=== PATIENT | female | born 1970 | race Caucasian/White ===

== ENCOUNTER 2022-08-08 03:20 | Emergency (ER) | payer OTHER ==
[2022-08-08 03:30] VITALS: TEMP 98.4
[2022-08-08] MEDS ORDERED: DILTIAZEM DRIP BOLUS FROM BAG 1 MG SOLN IV ONE (03:47)
[2022-08-08] MEDS ORDERED: DILTIAZEM 125 MG in SODIUM CHLORIDE 0.9% 100 ML IV SCH (04:00)
--- NOTE | 2022-08-08 04:08 | XR ---
EXAMINATION TYPE: XR chest 1V portable DATE OF EXAM: 08/08/2022 COMPARISON: NONE HISTORY: Dysrhythmia TECHNIQUE: Multiple view FINDINGS: Heart is normal. Lungs are clear of infiltrate. No heart failure. There are no hilar masses . There are chest leads. Bony thorax is intact. IMPRESSION: No active cardiopulmonary disease. Normal heart.
[2022-08-08 04:10] LABS: Basophils % (A) 0 %; Eosinophils # (A) 0.4 k/uL (0-0.7); Eosinophils % (A) 6 %; HCT 45.6 % (34.0-46.0); HGB 15.6 gm/dL (11.4-16.0); Lymphocytes # (A) 1.9 k/uL (1.0-4.8); Lymphocytes % (A) 26 %; MCH 34.4 pg (25.0-35.0); MCHC 34.2 g/dL (31.0-37.0); MCV 100.7 fL (80.0-100.0); Mean Platelet Volume 7.5; Monocytes # (A) 0.5 k/uL (0-1.0); Monocytes % (A) 6 %; Neutrophils # (A) 4.5 k/uL (1.3-7.7); Neutrophils % (A) 60 %; Platelet Count 233 k/uL (150-450); RBC 4.53 m/uL (3.80-5.40); RDW 12.1 % (11.5-15.5); WBC 7.4 k/uL (3.8-10.6)
[2022-08-08 04:27] LABS: ALT 21 U/L (4-34); AST 27 U/L (14-36); African American GFR (CKD) >90 (>60 ml/min/1.73 sqM); Albumin 4.8 g/dL (3.5-5.0); Alkaline Phosphatase 72 U/L (38-126); Anion Gap 10 mmol/L; Blood Urea Nitrogen 13 mg/dL (7-17); Calcium 9.4 mg/dL (8.4-10.2); Carbon Dioxide 27 mmol/L (22-30); Chloride 104 mmol/L (98-107); Glucose 103 mg/dL (74-99); Magnesium 2.1 mg/dL (1.6-2.3); Non-African American GFR(CKD) >90 (>60 ml/min/1.73 sqM); Potassium 3.9 mmol/L (3.5-5.1); Sodium 141 mmol/L (137-145); Total Bilirubin 0.4 mg/dL (0.2-1.3); Total Protein 7.5 g/dL (6.3-8.2)
[2022-08-08 04:28] LABS: INR 0.9 (<1.2); Partial Thromboplastin Time 25.3 sec (22.0-30.0); Prothrombin Time 9.9 sec (9.0-12.0)
--- NOTE | 2022-08-08 04:28 | ED ---
Arrhythmia/Palpitations HPI - General Chief Complaint: Arrhythmia/Palpitations Stated Complaint: Palpitations Time Seen by Provider: 08/08/22 03:48 Source: patient Mode of arrival: ambulatory - History of Present Illness MD Complaint: rapid heart beat, palpitations Onset/Timin -: hour(s) Context: occurred during rest, awoke with symptoms Associated Symptoms: shortness of breath - Related Data Allergies Allergy/AdvReac Type Severity Reaction Status Date / Time No Known Allergies Allergy Verified 08/08/22 03:30 Review of Systems ROS Statement: Those systems with pertinent positive or pertinent negative responses have been documented in the HPI. ROS Other: All systems not noted in ROS Statement are negative. Constitutional: Denies: fever, chills Respiratory: Reports: dyspnea. Denies: cough Cardiovascular: Reports: palpitations. Denies: chest pain Gastrointestinal: Denies: abdominal pain, nausea, vomiting, diarrhea, constipation Genitourinary: Denies: dysuria, frequency, hematuria Skin: Denies: rash Neurological: Denies: headache, weakness, numbness Past Medical History Past Medical History: No Reported History History of Any Multi-Drug Resistant Organisms: None Reported Past Surgical History: Hysterectomy Past Psychological History: No Psychological Hx Reported Smoking Status: Never smoker Past Alcohol Use History: None Reported Past Drug Use History: None Reported General Exam General appearance: alert, in no apparent distress Head exam: Present: atraumatic, normocephalic Eye exam: Present: normal appearance. Absent: scleral icterus, conjunctival injection ENT exam: Present: normal oropharynx Neck exam: Present: normal inspection. Absent: full ROM Respiratory exam: Present: normal lung sounds bilaterally. Absent: respiratory distress, wheezes, rales, rhonchi, stridor Cardiovascular Exam: Present: regular rate, normal rhythm, normal heart sounds. Absent: systolic murmur, diastolic murmur, rubs, gallop GI/Abdominal exam: Present: soft. Absent: distended, tenderness, guarding, rebound, rigid, mass Extremities exam: Present: normal inspection, normal capillary refill. Absent: pedal edema, calf tenderness Back exam: Present: normal inspection. Absent: CVA tenderness (R), CVA tenderness (L) Neurological exam: Present: alert Skin exam: Present: warm, dry, intact, normal color. Absent: rash Course Vital Signs 08/08/22 08/08/22 08/08/22 03:26 04:02 05:16 Temperature 98.4 F Pulse Rate 98 95 86 Respiratory 18 20 16 Rate Blood Pressure 139/89 140/89 120/88 O2 Sat by Pulse 100 98 99 Oximetry EKG Findings - EKG Results: EKG: interpreted by ERMD, normal axis EKG shows: atrial fibrillation (Rate 161 bpm) - Blocks, [place], Hypertrophy, ST Abn: AV and intraventricular conduction: right bundle branch block (fixed/intermittent, complete/incomplete) (Possible right ventricular conduction delay) Medical Decision Making - Lab Data Result diagrams: 08/08/22 03:52 08/08/22 03:52 Lab Results 08/08/22 08/08/22 08/08/22 Range/Units 03:52 03:52 03:52 WBC 7.4 (3.8-10.6) k/uL RBC 4.53 (3.80-5.40) m/uL Hgb 15.6 (11.4-16.0) gm/dL Hct 45.6 (34.0-46.0) % MCV 100.7 H (80.0-100.0) fL MCH 34.4 (25.0-35.0) pg MCHC 34.2 (31.0-37.0) g/dL RDW 12.1 (11.5-15.5) % Plt Count 233 (150-450) k/uL MPV 7.5 Neutrophils % 60 % Lymphocytes % 26 % Monocytes % 6 % Eosinophils % 6 % Basophils % 0 % Neutrophils # 4.5 (1.3-7.7) k/uL Lymphocytes # 1.9 (1.0-4.8) k/uL Monocytes # 0.5 (0-1.0) k/uL Eosinophils # 0.4 (0-0.7) k/uL Basophils # 0.0 (0-0.2) k/uL PT 9.9 (9.0-12.0) sec INR 0.9 (<1.2) APTT 25.3 (22.0-30.0) sec Sodium 141 (137-145) mmol/L Potassium 3.9 (3.5-5.1) mmol/L Chloride 104 (98-107) mmol/L Carbon Dioxide 27 (22-30) mmol/L Anion Gap 10 mmol/L BUN 13 (7-17) mg/dL Creatinine 0.60 (0.52-1.04) mg/dL Est GFR (CKD-EPI)AfAm >90 (>60 ml/min/1.73 sqM) Est GFR (CKD-EPI)NonAf >90 (>60 ml/min/1.73 sqM) Glucose 103 H (74-99) mg/dL Calcium 9.4 (8.4-10.2) mg/dL Magnesium 2.1 (1.6-2.3) mg/dL Total Bilirubin 0.4 (0.2-1.3) mg/dL AST 27 (14-36) U/L ALT 21 (4-34) U/L Alkaline Phosphatase 72 (38-126) U/L Troponin I (0.000-0.034) ng/mL Total Protein 7.5 (6.3-8.2) g/dL Albumin 4.8 (3.5-5.0) g/dL TSH 5.370 H (0.465-4.680) mIU/L Urine Color Urine Appearance (Clear) Urine pH (5.0-8.0) Ur Specific [place] (1.001-1.035) Urine Protein (Negative) Urine Glucose (UA) (Negative) Urine Ketones (Negative) Urine Blood (Negative) Urine Nitrite (Negative) Urine Bilirubin (Negative) Urine Urobilinogen (<2.0) mg/dL Ur Leukocyte Esterase (Negative) 08/08/22 08/08/22 Range/Units 03:52 03:55 WBC (3.8-10.6) k/uL RBC (3.80-5.40) m/uL Hgb (11.4-16.0) gm/dL Hct (34.0-46.0) % MCV (80.0-100.0) fL MCH (25.0-35.0) pg MCHC (31.0-37.0) g/dL RDW (11.5-15.5) % Plt Count (150-450) k/uL MPV Neutrophils % % Lymphocytes % % Monocytes % % Eosinophils % % Basophils % % Neutrophils # (1.3-7.7) k/uL Lymphocytes # (1.0-4.8) k/uL Monocytes # (0-1.0) k/uL Eosinophils # (0-0.7) k/uL Basophils # (0-0.2) k/uL PT (9.0-12.0) sec INR (<1.2) APTT (22.0-30.0) sec Sodium (137-145) mmol/L Potassium (3.5-5.1) mmol/L Chloride (98-107) mmol/L Carbon Dioxide (22-30) mmol/L Anion Gap mmol/L BUN (7-17) mg/dL Creatinine (0.52-1.04) mg/dL Est GFR (CKD-EPI)AfAm (>60 ml/min/1.73 sqM) Est GFR (CKD-EPI)NonAf (>60 ml/min/1.73 sqM) Glucose (74-99) mg/dL Calcium (8.4-10.2) mg/dL Magnesium (1.6-2.3) mg/dL Total Bilirubin (0.2-1.3) mg/dL AST (14-36) U/L ALT (4-34) U/L Alkaline Phosphatase (38-126) U/L Troponin I <0.012 (0.000-0.034) ng/mL Total Protein (6.3-8.2) g/dL Albumin (3.5-5.0) g/dL TSH (0.465-4.680) mIU/L Urine Color Colorless Urine Appearance Clear (Clear) Urine pH 7.0 (5.0-8.0) Ur Specific [place] 1.004 (1.001-1.035) Urine Protein Negative (Negative) Urine Glucose (UA) Negative (Negative) Urine Ketones Trace H (Negative) Urine Blood Negative (Negative) Urine Nitrite Negative (Negative) Urine Bilirubin Negative (Negative) Urine Urobilinogen <2.0 (<2.0) mg/dL Ur Leukocyte Esterase Negative (Negative) Disposition Clinical Impression: Atrial fibrillation Disposition: HOME SELF-CARE Condition: Good Instructions (If sedation given, give patient instructions): A-fib (Atrial Fibrillation) (ED) Is patient prescribed a controlled substance at d/c from ED?: No Referrals: Sawyer Garcia MD [Primary Care Provider] - 1-2 days
[2022-08-08 05:06] LABS: Appearance,Urine Clear (Clear); Bilirubin,Urine Negative (Negative); Blood,Urine Negative (Negative); Color,Urine Colorless; Glucose,Urine (UA) Negative (Negative); Ketones,Urine Trace (Negative); Leukocyte Esterase,Urine Negative (Negative); Nitrite,Urine Negative (Negative); Protein,Urine Negative (Negative); Specific Gravity,Urine 1.004 (1.001-1.035); Urobilinogen,Urine <2.0 mg/dL (<2.0)
[2022-08-08 05:16] VITALS: PULSE 86; RESP 16
[2022-08-08 06:55] VITALS: BP 135/66
== END 2022-08-08 06:55 | disposition home or self-care (01) ==
LOC: EC 03:20
DX: I48.91 Unspecified atrial fibrillation (principal)
CPT/HCPCS: 36415; 71045; 80053; 81003; 83735; 84443; 84484; 85025; 85610; 85730; 93005; 99285

== ENCOUNTER 2023-03-21 12:21 | Observation (INO) | payer OTHER ==
[2023-03-21] MEDS ORDERED: ADENOSINE 3 MG/ML 2 ML VIAL IVP STA (13:01)
[2023-03-21] MEDS ORDERED: SODIUM CHLORIDE 0.9% 500 ML 500 ML IV STA (13:07)
--- NOTE | 2023-03-21 13:12 | ED ---
General Adult HPI - General Chief complaint: Arrhythmia/Palpitations Stated complaint: tachycardia Time Seen by Provider: 03/21/23 12:35 Source: patient, family, RN notes reviewed, old records reviewed Mode of arrival: ambulatory Limitations: no limitations - History of Present Illness Initial comments: This is a 52-year-old female presents emergency Department stating she had recent ablation for atrial fibrillation. Patient states she has had no symptoms since also today she felt her heart racing. Patient states she took her heart rate was under 90 she came to the emergency department. Patient states her legs feel little weaker when this occurs but she's not expressing any chest pain difficulty breathing or shortness of breath per patient denies lightheadedness or dizziness. Patient denies any recent fever chills or cough. Patient states she did drink a little heavier this week and because it was a . - Related Data Home Medications Medication Instructions Recorded Confirmed No Known Home Medications 03/21/23 03/21/23 Allergies Allergy/AdvReac Type Severity Reaction Status Date / Time No Known Allergies Allergy Verified 03/21/23 13:17 Review of Systems ROS Statement: Those systems with pertinent positive or pertinent negative responses have been documented in the HPI. ROS Other: All systems not noted in ROS Statement are negative. Past Medical History Past Medical History: Atrial Fibrillation, Asthma History of Any Multi-Drug Resistant Organisms: None Reported Past Surgical History: No Surgical Hx Reported, Cardiac Ablation, Hysterectomy Past Psychological History: No Psychological Hx Reported Smoking Status: Never smoker Past Alcohol Use History: Occasional Past Drug Use History: None Reported General Exam - General Exam Comments Initial Comments: GENERAL: Patient is well-developed and well-nourished. Patient is nontoxic and well- hydrated and is in mild distress. ENT: Neck is soft and supple. No significant lymphadenopathy is noted. Oropharynx is clear. Moist mucous membranes. Neck has full range of motion without eliciting any pain. EYES: The sclera were anicteric and conjunctiva were pink and moist. Extraocular movements were intact and pupils were equal round and reactive to light. Eyelids were unremarkable. PULMONARY: Unlabored respirations. Good breath sounds bilaterally. No audible rales rhonchi or wheezing was noted. CARDIOVASCULAR: Patient's heart rate is 190 beats a minute ABDOMEN: Soft and nontender with normal bowel sounds. SKIN: Skin is clear with no lesions or rashes and otherwise unremarkable. NEUROLOGIC: Patient is alert and oriented x3. Cranial nerves II through XII are grossly intact. Motor and sensory are also intact. Normal speech, volume and content. Symmetrical smile. MUSCULOSKELETAL: Normal extremities with adequate strength and full range of motion. LYMPHATICS: No significant lymphadenopathy is noted PSYCHIATRIC: Normal psychiatric evaluation. Limitations: no limitations Course Vital Signs 03/21/23 03/21/23 03/21/23 12:35 12:49 14:05 Temperature 97.9 F Pulse Rate 198 H 197 H 100 Respiratory 18 18 18 Rate Blood Pressure 125/90 126/103 119/86 O2 Sat by Pulse 100 99 100 Oximetry Medical Decision Making - Medical Decision Making EKG is interpreted by myself shows supraventricular tachycardia at 194 bpm QRS 71 Q-T intervals 193 QTC is 291. Patient's EKG shows no ST segment elevation there is slight depression in precordial leads I interpreted the repeat EKG which was after adenosine it showed a sinus tachycardia at 109 bpm OR interval 248 uracil 74 QT interval 336 QTC is 400. Patient's EKG is no ST segment elevation or depression. Was pt. sent in by a medical professional or institution (, PA, LEARNING OFFICER, urgent care, hospital, or penitentiary...) When possible be specific @ -[No] Did you speak to anyone other than the patient for history (EMS, parent, family, police, friend...)? What history was obtained from this source @ -[No] Did you review nursing and triage notes (agree or disagree)? Why? @ -[I reviewed and agree with nursing and triage notes] Were old charts reviewed (outside hosp., previous admission, EMS record, old EKG, old radiological studies, urgent care reports/EKG's, penitentiary records)? Report findings @ -[No old charts were reviewed] Differential Diagnosis (chest pain, altered mental status, abdominal pain women, abdominal pain men, vaginal bleeding, weakness, fever, dyspnea, syncope, headache, dizziness, GI bleed, back pain, seizure, CVA, palpatations, mental health, musculoskeletal)? @ -Differential Palpitations Ventricular arrhythmias, atrial arrhythmias, myocardial infarction, anemia, thyrotoxicosis, electrolyte imbalance, hypokalemia, pulmonary embolism, pulmonary disease, drugs, alcohol, anxiety, stress.... This is not meant to be an all-inclusive list. EKG interpreted by me (3pts min.). @ -[As above] X-rays interpreted by me (1pt min.). @ -Chest x-ray showed no acute abnormality. CT interpreted by me (1pt min.). @ -[None done] U/S interpreted by me (1pt. min.). @ -[None done] What testing was considered but not performed or refused? (CT, X-rays, U/S, labs)? Why? @ -[None] What meds were considered but not given or refused? Why? @ -[None] Did you discuss the management of the patient with other professionals (professionals i.e. DrSe, PA, LEARNING OFFICER, lab, RT, psych nurse, social worker psychiatric, rail car repairman, teacher, biosecurity officer, case supervisor)? Give summary @ -[No] Was smoking cessation discussed for >3mins.? @ -[No] Was critical care preformed (if so, how long)? @ -[No] Were there social determinants of health that impacted care today? How? (Homelessness, low income, unemployed, alcoholism, drug addiction, transportation, low edu. Level, literacy, decrease access to med. care, [facility], rehab)? @ -[No] Was there de-escalation of care discussed even if they declined (Discuss DNR or withdrawal of care, Hospice)? DNR status @ -[No] What co-morbidities impacted this encounter? (DM, HTN, Smoking, COPD, CAD, Cancer, CVA, ARF, Chemo, Hep., AIDS, mental health diagnosis, sleep apnea, morbid obesity)? @ -[None] Was patient admitted / discharged? Hospital course, mention meds given and route, prescriptions, significant lab abnormalities, going to OR and other pertinent info. @ -Patient was given adenosine 6 mg of the SVT converted almost immediately. Patient remained with a heart rate under 100 throughout her ED stay. Patient's troponin was mildly bumped at 0.116 patient was willing to stay for a few more hours to get a second troponin and determine what to do from there. Dr. Fuller will be following up with his patient at 3 PM - Lab Data Result diagrams: 03/21/23 13:00 03/21/23 13:00 Lab Results 03/21/23 03/21/23 03/21/23 Range/Units 13:00 13:00 13:00 WBC 8.0 (3.8-10.6) k/uL RBC 4.69 (3.80-5.40) m/uL Hgb 15.3 (11.4-16.0) gm/dL Hct 46.3 H (34.0-46.0) % MCV 98.7 (80.0-100.0) fL MCH 32.7 (25.0-35.0) pg MCHC 33.1 (31.0-37.0) g/dL RDW 12.8 (11.5-15.5) % Plt Count 277 (150-450) k/uL MPV 7.2 Neutrophils % 72 % Lymphocytes % 19 % Monocytes % 6 % Eosinophils % 1 % Basophils % 0 % Neutrophils # 5.7 (1.3-7.7) k/uL Lymphocytes # 1.5 (1.0-4.8) k/uL Monocytes # 0.5 (0-1.0) k/uL Eosinophils # 0.1 (0-0.7) k/uL Basophils # 0.0 (0-0.2) k/uL PT 10.9 (9.0-12.0) sec INR 1.0 (<1.2) APTT 29.4 (22.0-30.0) sec Sodium 140 (137-145) mmol/L Potassium 4.3 (3.5-5.1) mmol/L Chloride 103 (98-107) mmol/L Carbon Dioxide 28 (22-30) mmol/L Anion Gap 9 mmol/L BUN 10 (7-17) mg/dL Creatinine 0.67 (0.52-1.04) mg/dL Est GFR (CKD-EPI)AfAm >90 (>60 ml/min/1.73 sqM) Est GFR (CKD-EPI)NonAf >90 (>60 ml/min/1.73 sqM) Glucose 105 H (74-99) mg/dL Calcium 9.6 (8.4-10.2) mg/dL Magnesium 2.0 (1.6-2.3) mg/dL Total Bilirubin 0.5 (0.2-1.3) mg/dL AST 31 (14-36) U/L ALT 24 (4-34) U/L Alkaline Phosphatase 85 (38-126) U/L Troponin I (0.000-0.034) ng/mL Total Protein 7.9 (6.3-8.2) g/dL Albumin 4.9 (3.5-5.0) g/dL TSH 2.060 (0.465-4.680) mIU/L 03/21/23 Range/Units 13:00 WBC (3.8-10.6) k/uL RBC (3.80-5.40) m/uL Hgb (11.4-16.0) gm/dL Hct (34.0-46.0) % MCV (80.0-100.0) fL MCH (25.0-35.0) pg MCHC (31.0-37.0) g/dL RDW (11.5-15.5) % Plt Count (150-450) k/uL MPV Neutrophils % % Lymphocytes % % Monocytes % % Eosinophils % % Basophils % % Neutrophils # (1.3-7.7) k/uL Lymphocytes # (1.0-4.8) k/uL Monocytes # (0-1.0) k/uL Eosinophils # (0-0.7) k/uL Basophils # (0-0.2) k/uL PT (9.0-12.0) sec INR (<1.2) APTT (22.0-30.0) sec Sodium (137-145) mmol/L Potassium (3.5-5.1) mmol/L Chloride (98-107) mmol/L Carbon Dioxide (22-30) mmol/L Anion Gap mmol/L BUN (7-17) mg/dL Creatinine (0.52-1.04) mg/dL Est GFR (CKD-EPI)AfAm (>60 ml/min/1.73 sqM) Est GFR (CKD-EPI)NonAf (>60 ml/min/1.73 sqM) Glucose (74-99) mg/dL Calcium (8.4-10.2) mg/dL Magnesium (1.6-2.3) mg/dL Total Bilirubin (0.2-1.3) mg/dL AST (14-36) U/L ALT (4-34) U/L Alkaline Phosphatase (38-126) U/L Troponin I 0.116 H* (0.000-0.034) ng/mL Total Protein (6.3-8.2) g/dL Albumin (3.5-5.0) g/dL TSH (0.465-4.680) mIU/L Disposition Referrals: Sawyer Garcia MD [Primary Care Provider] - 1-2 days
[2023-03-21 13:48] LABS: Basophils % (A) 0 %; Eosinophils # (A) 0.1 k/uL (0-0.7); Eosinophils % (A) 1 %; HCT 46.3 % (34.0-46.0); HGB 15.3 gm/dL (11.4-16.0); Lymphocytes # (A) 1.5 k/uL (1.0-4.8); Lymphocytes % (A) 19 %; MCH 32.7 pg (25.0-35.0); MCHC 33.1 g/dL (31.0-37.0); MCV 98.7 fL (80.0-100.0); Mean Platelet Volume 7.2; Monocytes # (A) 0.5 k/uL (0-1.0); Monocytes % (A) 6 %; Neutrophils # (A) 5.7 k/uL (1.3-7.7); Neutrophils % (A) 72 %; Platelet Count 277 k/uL (150-450); RBC 4.69 m/uL (3.80-5.40); RDW 12.8 % (11.5-15.5)
[2023-03-21 14:00] LABS: ALT 24 U/L (4-34); AST 31 U/L (14-36); African American GFR (CKD) >90 (>60 ml/min/1.73 sqM); Albumin 4.9 g/dL (3.5-5.0); Alkaline Phosphatase 85 U/L (38-126); Anion Gap 9 mmol/L; Blood Urea Nitrogen 10 mg/dL (7-17); Calcium 9.6 mg/dL (8.4-10.2); Carbon Dioxide 28 mmol/L (22-30); Chloride 103 mmol/L (98-107); Glucose 105 mg/dL (74-99); Non-African American GFR(CKD) >90 (>60 ml/min/1.73 sqM); Partial Thromboplastin Time 29.4 sec (22.0-30.0); Potassium 4.3 mmol/L (3.5-5.1); Prothrombin Time 10.9 sec (9.0-12.0); Sodium 140 mmol/L (137-145); Total Bilirubin 0.5 mg/dL (0.2-1.3); Total Protein 7.9 g/dL (6.3-8.2)
--- NOTE | 2023-03-21 14:27 | XR ---
EXAMINATION TYPE: XR chest 2V DATE OF EXAM: 03/21/2023 COMPARISON: 08/08/2022 HISTORY: Shortness of breath TECHNIQUE: Frontal and lateral views of the chest are obtained. FINDINGS: Scattered senescent parenchymal changes noted. Hyperinflation compatible with COPD. No evidence for infiltrate. No evidence for atelectasis. Heart size is stable. Mediastinal structures are stable and grossly unremarkable. No evidence for hilar prominence. Degenerative changes dorsal spine. IMPRESSION: 1. No evidence for acute pulmonary disease.
[2023-03-21] MEDS ORDERED: NITROGLYCERIN SL TABS 0.4 MG TAB SUBLINGUAL PRN (20:13)
[2023-03-22 00:01] VITALS: TEMP 97.8
[2023-03-22] MEDS ORDERED: VERAPAMIL 40 MG TAB PO PRN (08:31)
--- NOTE | 2023-03-22 08:42 | P.CRDCN ---
History of Present Illness Consult date: 03/22/23 History of present illness: History of Present Illness: The patient is a 52-year-old female who presented with episodes of palpitations that lasted for about 10 hours, woke her up from sleep, in the emergency room she was noted to be in SVT and subsequently converted back to sinus mechanism after receiving IV adenosine. She had mild elevation of her troponin. The pa cynthia has a known history of atrial fibrillation, status post ablation on January 30 at [facility]. The patient has no prior documented history of SVT yet she has noted her heart rate in the past prior to her ablation going up to the 200 bpm. She was at 194 on presentation. She is usually active physically has no associated chest discomfort, dyspnea or dizziness. She was feeling uncomfortable yesterday but had no discomfort in the chest. She has no history of obstructive CAD. She has no PND, orthopnea or peripheral edema. She has a history of smoking which she stopped in July 2022 when atrial fibrillation was documented the first time. She has no history of hypertension, diabetes or documented hyperlipidemia. She does not consume any significant caffeine but had more alcohol intake than usual on . She has been in sinus mechanism since her admission and her EKG shows no acute ST segment changes. Medications: None at home Review of Systems: Respiratory: No history of asthma, bronchitis or recent cough. GI: No nausea or vomiting . No history of peptic ulcer disease. No recent GI bleed. : No hematuria or dysuria. Nervous System: No stroke or seizure. Physical Examination: 52-year-old female, alert and oriented no apparent distress ,Blood pressure 127/67, Heart rate 94 Head: Normocephalic. Eyes: Sclerae nonicteric. Neck: Good carotid upstroke, no bruit, no jugular venous distention. Lungs: Clear to auscultation. Heart: Regular rate and rhythm, S1-S2, no S3, no rub. No murmur. Abdomen: Soft nontender, positive bowel sounds no organomegaly. Extremities: No edema, intact distal pulses. Labs: Troponin 0.116, 0.674, 0.506. Potassium 4.3. TSH 2.0. Hemoglobin 15.3. Chest x-ray with no acute infiltrate EKG: Initial EKG SVT, heart rate [address]-T wave changes, subsequent EKG shows sinus mechanism with mild nonspecific ST-T wave changes and RSR prime Impression: 1. 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 Prior history of atrial fibrillation, status post ablation, no recurrence, score of 1 3. Mild troponin elevation, most likely related to the tachycardia, no evidence to suggest a primary ischemic event Plan: 1. Obtain an echocardiogram 2. Obtain a stress echocardiogram 3. With no evidence of stress-induced ischemia, no further cardiac workup will be needed at this time 4. Start verapamil 40 mg on a when necessary basis. 5. Patient to follow-up with her primary human services manager for possible ablation of AVNRT 6. Depending on her progress further recommendations will be made 7. Thank you for this consult we will follow with you Past Medical History Past Medical History: Atrial Fibrillation, Asthma History of Any Multi-Drug Resistant Organisms: None Reported Past Surgical History: Cardiac Ablation, Hysterectomy Past Psychological History: No Psychological Hx Reported Smoking Status: Never smoker Past Alcohol Use History: Occasional Past Drug Use History: None Reported Medications and Allergies Home Medications Medication Instructions Recorded Confirmed Type No Known Home Medications 03/21/23 03/21/23 History Allergies Allergy/AdvReac Type Severity Reaction Status Date / Time No Known Allergies Allergy Verified 03/21/23 13:17 Physical Exam Vitals: Vital Signs Temp Pulse Pulse Resp BP BP Pulse Ox 03/22/23 04:00 94 16 127/67 97 03/21/23 23:59 97.8 F 99 18 155/92 98 03/21/23 21:02 90 16 117/66 98 03/21/23 18:10 98 16 126/91 100 03/21/23 18:00 95 18 127/67 98 03/21/23 16:00 101 H 18 97 03/21/23 14:05 100 18 119/86 100 03/21/23 12:49 197 H 18 126/103 99 03/21/23 12:35 97.9 F 198 H 18 125/90 100 Intake and Output 03/21/23 03/22/23 03/22/23 22:59 06:59 14:59 Intake Total 560 Balance 560 Intake: Oral 560 Other: Weight 51.71 kg Results 03/21/23 13:00 03/21/23 13:00 Cardiac Enzymes 03/21/23 03/21/23 03/21/23 Range/Units 13:00 13:00 18:09 AST 31 (14-36) U/L Troponin I 0.116 H* 0.674 H* (0.000-0.034) ng/mL 03/21/23 Range/Units 21:06 AST (14-36) U/L Troponin I 0.506 H* (0.000-0.034) ng/mL Coagulation 03/21/23 Range/Units 13:00 PT 10.9 (9.0-12.0) sec APTT 29.4 (22.0-30.0) sec CBC 03/21/23 Range/Units 13:00 WBC 8.0 (3.8-10.6) k/uL RBC 4.69 (3.80-5.40) m/uL Hgb 15.3 (11.4-16.0) gm/dL Hct 46.3 H (34.0-46.0) % Plt Count 277 (150-450) k/uL Comprehensive Metabolic Panel 03/21/23 Range/Units 13:00 Sodium 140 (137-145) mmol/L Potassium 4.3 (3.5-5.1) mmol/L Chloride 103 (98-107) mmol/L Carbon Dioxide 28 (22-30) mmol/L BUN 10 (7-17) mg/dL Creatinine 0.67 (0.52-1.04) mg/dL Glucose 105 H (74-99) mg/dL Calcium 9.6 (8.4-10.2) mg/dL AST 31 (14-36) U/L ALT 24 (4-34) U/L Alkaline Phosphatase 85 (38-126) U/L Total Protein 7.9 (6.3-8.2) g/dL Albumin 4.9 (3.5-5.0) g/dL Current Medications Generic Name Dose Route Start Last Admin Trade Name Freq PRN Reason Stop Dose Admin Aspirin 325 mg 03/22/23 09:00 Aspirin 325 Mg Tab PO DAILY SHAJI Sodium Chloride 1,000 mls @ 100 mls/hr 03/21/23 20:15 Saline 0.9% IV .Q10H SHAJI Nitroglycerin 0.4 mg 03/21/23 20:13 Nitroglycerin Sl Tabs 0.4 Mg Tab SUBLINGUAL Q5M PRN Chest Pain Verapamil HCl 40 mg 05/31/23 08:31 Verapamil 40 Mg Tab PO ONCE PRN Cardiac Arrhythmia Intake and Output 03/21/23 03/22/23 03/22/23 22:59 06:59 14:59 Intake Total 560 Balance 560 Intake: Oral 560 Other: Weight 51.71 kg 03/21/23 13:00 03/21/23 13:00
[2023-03-22] MEDS: SODIUM CHLORIDE 0.9% 1,000 ML IV SCH ×3 (09:21→17:55)
--- NOTE | 2023-03-22 09:30 | P.HPIM ---
History of Present Illness This is a pleasant 52 years old female with past medical history of atrial fibrillation status post cardiac ablation, asthma Patient presents because of tachycardia and increased heart rate. Patient woke up 4:00 complaining of from racing heart rate with little discomfort but no overt chest pain or dyspnea or dizziness. Patient denies any GI or urinary symptoms. She has mild headache. She denies weakness or numbness. No confusion She has a heart monitor for the last 2 weeks with her day care home provider She quit smoking last July when she had A. fib also she quit drinking alcohol and coffee. Review of Systems Review of systems CONSTITUTIONAL: No fever, no malaise, no fatigue. HEENT: No recent visual problems or hearing problems. Denied any sore throat. CARDIOVASCULAR: No orthopnea, PND, no palpitations, no syncope. PULMONARY: No shortness of breath, no cough, no hemoptysis. GASTROINTESTINAL: No diarrhea, no nausea, no vomiting, no abdominal pain. Normoactive bowel sounds. NEUROLOGICAL: No headaches, no weakness, no numbness. HEMATOLOGICAL: Denies any bleeding or petechiae. GENITOURINARY: Denies any burning micturition, frequency, or urgency. MUSCULOSKELETAL/RHEUMATOLOGICAL: Denies any joint pain, swelling, or any muscle pain. ENDOCRINE: Denies any polyuria or polydipsia. Past Medical History Past Medical History: Atrial Fibrillation, Asthma History of Any Multi-Drug Resistant Organisms: None Reported Past Surgical History: Cardiac Ablation, Hysterectomy Past Psychological History: No Psychological Hx Reported Smoking Status: Never smoker Past Alcohol Use History: Occasional Past Drug Use History: None Reported Medications and Allergies Home Medications Medication Instructions Recorded Confirmed Type No Known Home Medications 03/21/23 03/21/23 History Allergies Allergy/AdvReac Type Severity Reaction Status Date / Time No Known Allergies Allergy Verified 03/21/23 13:17 Physical Exam Vitals: Vital Signs Temp Pulse Pulse Resp BP BP Pulse Ox 03/22/23 04:00 94 16 127/67 97 03/21/23 23:59 97.8 F 99 18 155/92 98 03/21/23 21:02 90 16 117/66 98 03/21/23 18:10 98 16 126/91 100 03/21/23 18:00 95 18 127/67 98 03/21/23 16:00 101 H 18 97 03/21/23 14:05 100 18 119/86 100 03/21/23 12:49 197 H 18 126/103 99 03/21/23 12:35 97.9 F 198 H 18 125/90 100 Intake and Output 03/21/23 03/22/23 03/22/23 22:59 06:59 14:59 Intake Total 560 Balance 560 Intake: Oral 560 Other: Weight 51.71 kg GENERAL: The patient is alert and oriented x3, not in any acute distress. Well developed, well nourished. HEENT: Pupils are round and equally reacting to light. EOMI. No scleral icterus. No conjunctival pallor. Normocephalic, atraumatic. No pharyngeal erythema. No thyromegaly. CARDIOVASCULAR: S1 and S2 present. No murmurs, rubs, or gallops. PULMONARY: Chest is clear to auscultation, no wheezing or crackles. ABDOMEN: Soft, nontender, nondistended, normoactive bowel sounds. No palpable organomegaly. MUSCULOSKELETAL: No joint swelling or deformity. EXTREMITIES: No cyanosis, clubbing, or pedal edema. NEUROLOGICAL: Gross neurological examination did not reveal any focal deficits. SKIN: No rashes. no petechiae. Results CBC & Chem 7: 03/21/23 13:00 03/21/23 13:00 Labs: Abnormal Lab Results - Last 24 Hours (Table) 03/21/23 03/21/23 03/21/23 Range/Units 13:00 13:00 13:00 Hct 46.3 H (34.0-46.0) % Glucose 105 H (74-99) mg/dL Troponin I 0.116 H* (0.000-0.034) ng/mL 03/21/23 03/21/23 Range/Units 18:09 21:06 Hct (34.0-46.0) % Glucose (74-99) mg/dL Troponin I 0.674 H* 0.506 H* (0.000-0.034) ng/mL Thrombosis Risk Factor Assmnt - Choose All That Apply Any of the Below Risk Factors Present?: Yes Each Factor Represents 1 point: Age 41-60 years Other Risk Factors: No Other congenital or acquired thrombophilia - If yes, enter type in comment: No Thrombosis Risk Factor Assessment Total Risk Factor Score: 1 Thrombosis Risk Factor Assessment Level: Low Risk Assessment and Plan Assessment: On admission heart rate was 198/m, currently improved down to 92 Other vitals are stable She has unremarkable CBC, INR, BMP and liver enzymes. TSH normal 2.0. Troponin are elevated 0.11, 0.67 and 0.50. Chest x-ray: No acute process. EKG showing normal sinus rhythm at 86, no significant ST-T changes Earlier EKG showing supraventricular tachycardia at 194 Plan: Supraventricular tachycardia, currently improved Elevated troponin, most likely secondary to above Paroxysmal atrial fibrillation status post cardiac ablation on 01/30/2023 asthma, not active tissue continue with telemetry monitoring Cardiology consult Stress echo per Director Of Preclinical Research Labs and medication were reviewed.. Continue same treatment. Continue with symptomatic treatment. Resume home medication. Monitor labs and vitals. DVT and GI prophylaxis. Further recommendations as per clinical course of the patient DVT prophylaxis: Subcutaneous heparin GI Prophylaxis: Pepcid
[2023-03-22] MEDS: ASPIRIN 325 MG TAB PO SCH (09:36)
[2023-03-22 14:51] LABS: Chol/HDL Ratio 2.02 Ratio; LDL Cholesterol,Calculated 95.3 mg/dL (0.0-131.0)
--- NOTE | 2023-03-22 17:06 | CA ---
Transthoracic Echo Report Name: Shelly Escobar Age: 52 Gender: F : 1970 Exam Date: 03/22/2023 11:44 Exam Location: [facility] Ht (in): 62 Wt (lb): 114 Ordering Physician: Alexi Mayers MD ([id number]) Attending/Referring Phys: Policy Specialist Delmy Crowley RDCS Procedure CPT: Indications: svt Cardiac Hx: Technical Quality: Fair Contrast 1: Total Dose (mL): Contrast 2: Total Dose (mL): MEASUREMENTS (Male / Female) Normal Values 2D ECHO LV Diastolic Diameter PLAX 3.8 cm 4.2 - 5.9 / 3.9 - 5.3 cm LV Systolic Diameter PLAX 2.7 cm IVS Diastolic Thickness 0.8 cm 0.6 - 1.0 / 0.6 - 0.9 cm LVPW Diastolic Thickness 1.0 cm 0.6 - 1.0 / 0.6 - 0.9 cm LV Relative Wall Thickness 0.5 RV Internal Dim ED PLAX 3.6 cm LA Volume 34.6 cm??? 18 - 58 / 22 - 52 cm??? M-MODE Aortic Root Diameter MM 2.9 cm LA Systolic Diameter MM 3.4 cm LA Ao Ratio MM 1.2 AV Cusp Separation MM 2.1 cm DOPPLER AV Peak Velocity 129.9 cm/s AV Peak Gradient 6.8 mmHg AV Mean Velocity 82.8 cm/s AV Mean Gradient 3.2 mmHg AV Velocity Time Integral 23.6 cm LVOT Peak Velocity 94.5 cm/s LVOT Peak Gradient 3.6 mmHg LVOT Velocity Time Integral 16.7 cm MV E' Velocity 6.5 cm/s TR Peak Velocity 227.4 cm/s TR Peak Gradient 20.7 mmHg Right Ventricular Systolic Press 24.8 mmHg FINDINGS Left Ventricle Left ventricular cavity size normal. Left ventricular wall thickness normal. Normal left ventricular systolic function with no obvious regional wall motion abnormalities. Left ventricular ejection fraction is estimated at 55-60 %. Right Ventricle Normal right ventricular size and function. Right ventricular systolic pressure within normal limits. Right Atrium Normal right atrial size. Left Atrium Normal left atrial size. Mitral Valve Structurally normal mitral valve. No mitral stenosis, regurgitation or prolapse. Aortic Valve Trileaflet aortic valve. No aortic valve stenosis or regurgitation. Tricuspid Valve Structurally normal tricuspid valve. Mild tricuspid regurgitation. Pulmonic Valve Structurally normal pulmonic valve. Trace pulmonic regurgitation. Pericardium No pericardial effusion. Aorta Normal size aortic root and proximal ascending aorta. CONCLUSIONS Normal LV systolic function Atypical septal motion Previewed by: Dr. Sonny Petersen MD (Electronically Signed) Final Date: 22 Mar 2023 17:05
--- NOTE | 2023-03-22 17:09 | CA ---
Stress Echo Report Shelly Escobar Age: 52 Gender: F : 1970 Exam Date: 03/22/2023 11:21 Exam Location: [facility] Ht (in): 62 Wt (lb): 114 Ordering Physician: Alexi Mayers MD ([id number]) Referring Physician: MARY, News Clipping Cutter: YISEL Technologist Procedure CPT: Indication: Chest Pain ICD-9 Codes: Rhythm: Patient History: HX OF SVT, PALPITATIONS, FAMILY HX OF HEART DISEASE, PRIOR SMOKER (QUIT X 9 MOS). PRIOR CARDIAC ABLATION Cardiac Medications: Medications in past 24 hours: Contrast: Stress Results Protocol: Anshu Total dose(mL): Exercise Duration (min:sec): Max ST Depression (mm): Angina Score: Madsen Score: METS: 9.1 Resting HR: 108 Resting BP: 102 / 65 Peak HR: 173 Peak BP: 178 / 73 Max Predicted HR: 168 103 % Max Predicted HR Target HR: 143 Double Product: 16089 Stress Summary: BP Response: Reason for Termination: MAX EXERTION/TARGET HR Cardiac Symptoms: NO SYMPTOMS ECG Analysis Resting ECG: Normal sinus rhythm with nonspecific ST-T wave changes Stress ECG: Worsening of the baseline ST-T wave changes Arrhythmia: Echo Analysis Resting Echo: Normal left and clear sinus atypical septal motion with normal LV function Peak Echo Analysis: Normal hyperdynamic response of all segments of myocardium noted MEASUREMENTS (Male/Female) Normal Values CONCLUSIONS Good exercise tolerance Inconclusive EKG part of the stress test due to baseline EKG abnormalities Negative stress echo Dr. Sonny Petersen MD (Electronically Signed) Final Date: 22 Mar 2023 17:08
[2023-03-22] MEDS: FAMOTIDINE 20 MG/2 ML VIAL IV SCH (20:26)
[2023-03-22] MEDS: HEPARIN SODIUM,PORCINE/PF 5,000 UNIT/0.5 ML SYRINGE SQ SCH (20:26)
[2023-03-23 04:49] VITALS: RESP 16
[2023-03-23] MEDS: SODIUM CHLORIDE 0.9% 1,000 ML IV SCH (05:21)
[2023-03-23] MEDS: HEPARIN SODIUM,PORCINE/PF 5,000 UNIT/0.5 ML SYRINGE SQ SCH (08:53)
[2023-03-23] MEDS: ASPIRIN 325 MG TAB PO SCH (08:54)
[2023-03-23] MEDS: FAMOTIDINE 20 MG/2 ML VIAL IV SCH (08:54)
[2023-03-23 12:29] VITALS: BP 117/84; PULSE 99
--- NOTE | 2023-03-23 13:21 | P.PN ---
Subjective Progress Note Date: 03/23/23 HISTORY OF PRESENT ILLNESS: The patient is a 52-year-old female who presented with episodes of palpitations that lasted for about 10 hours, woke her up from sleep, in the emergency room she was noted to be in SVT and subsequently converted back to sinus mechanism after receiving IV adenosine. She had mild elevation of her troponin. The patient has a known history of atrial fibrillation, status post ablation on January 30 at [facility]. The patient has no prior documented history of SVT yet she has noted her heart rate in the past prior to her ablation going up to the 200 bpm. She was at 194 on presentation. She is usually active physically has no associated chest discomfort, dyspnea or dizziness. She was feeling uncomfortable yesterday but had no discomfort in the chest. She has no history of obstructive CAD. She has no PND, orthopnea or peripheral edema. She has a history of smoking which she stopped in July 2022 when atrial fibrillation was documented the first time. She has no history of hypertension, diabetes or documented hyperlipidemia. She does not consume any significant caffeine but had more alcohol intake than usual on . She has been in sinus mechanism since her admission and her EKG shows no acute ST segment changes. Medications: None at home 03/23/2023 Patient examined this morning at the bedside. Patient denies chest pain or pressure. She denies shortness of breath. No further episodes of SVT. Patient underwent stress echo yesterday which was negative for ischemia. Echocardiogram was completed revealing normal LV systolic function. Vital signs are stable. PHYSICAL EXAM: VITAL SIGNS: Reviewed. GENERAL: Well-developed in no acute distress. NECK: Supple. No JVD or thyromegaly LUNGS: Respirations even and unlabored. Lungs essentially clear to auscultation bilaterally. HEART: Regular rate and rhythm. S1 and S2 heard. EXTREMITIES: Normal range of motion. No clubbing or cyanosis. Peripheral pulses intact. No lower extremity edema ASSESSMENT: 1. 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 Prior history of atrial fibrillation, status post ablation, no recurrence, score of 1 3. Mild troponin elevation, most likely related to the tachycardia, no evidence to suggest a primary ischemic event PLAN: Patient is stable for discharge home today from a cardiac standpoint Patient to continue on verapamil 40 mg on a when necessary basis Patient to follow-up with her primary meeting manager post discharge Nurse practitioner note has been reviewed by physician. Signing provider agrees with the documented findings, assessment, and plan of care. Objective - Vital Signs Vital signs: Vital Signs Temp 97.8 F 03/22/23 20:00 Pulse 99 03/23/23 12:00 Resp 16 03/23/23 12:00 BP 117/84 03/23/23 12:00 Pulse Ox 100 03/23/23 12:00 FiO2 Intake & Output 03/22/23 03/23/23 03/23/23 18:59 06:59 18:59 Other: # Voids 2 4 - Labs CBC & Chem 7: 03/21/23 13:00 03/21/23 13:00 Labs: Abnormal Lab Results - Last 24 Hours (Table) 03/22/23 Range/Units 08:09 Cholesterol 208.00 H (0.00-200.00) mg/dL HDL Cholesterol 103.00 H (40.00-60.00) mg/dL
--- NOTE | 2023-03-24 15:12 | P.DS ---
Providers Date of admission: 03/21/23 20:15 Expected date of discharge: 03/23/23 Attending physician: Zay Caballero Consults: 03/21/23 20:13 Consult Physician Routine Consulting Provider: Jerome Clements Consult Reason/Comments: SVT. NSTEMI Do you want consulting provider notified?: Yes Primary care physician: [facility] Course: History of Present Illness This is a pleasant 52 years old female with past medical history of atrial fibrillation status post cardiac ablation, asthma Patient presents because of tachycardia and increased heart rate. Patient woke up 4:00 complaining of from racing heart rate with little discomfort but no overt chest pain or dyspnea or dizziness. Patient denies any GI or urinary symptoms. She has mild headache. She denies weakness or numbness. No confusion She has a heart monitor for the last 2 weeks with her bus boy She quit smoking last July when she had A. fib also she quit drinking alcohol and coffee. March 23: Patient sitting up in bed. Comforter. Has been up and about. at the bedside. Questions answered. No further episodes of SVT. Stress echocardiogram yesterday was negative. Patient to continue taking the verapamil when necessary. Patient follow-up with her primary bus boy. Question answered Past Medical History Past Medical History: Atrial Fibrillation, Asthma History of Any Multi-Drug Resistant Organisms: None Reported Past Surgical History: Cardiac Ablation, Hysterectomy Past Psychological History: No Psychological Hx Reported Smoking Status: Never smoker Past Alcohol Use History: Occasional Past Drug Use History: None Reported Medications and Allergies Home Medications Medication Instructions Recorded Confirmed Type No Known Home Medications 03/21/23 03/21/23 History Allergies Allergy/AdvReac Type Severity Reaction Status Date / Time No Known Allergies Allergy Verified 03/21/23 13:17 On examination: VITAL SIGNS: [Afebrile, 99, 16, 10[birth year]23/1969, 100% room air] GENERAL APPEARANCE: In bed, comfortable HEENT: Normal external appearance of nose and ear. Oral cavity normal EYES: Pupils equal. Conjunctiva normal. NECK: JVD not raised. Mass not palpable. RESPIRATORY: Respiratory effort normal. Lungs clear to auscultation. CARDIOVASCULAR: First and second sounds normal. No edema. ABDOMEN: Soft. Liver and spleen not palpable. No tenderness. No mass palpable. PSYCHIATRY: Alert and oriented x3. Mood and affect normal. 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 No recurrence. -Troponin leak secondary to uncontrolled heart rate. No ACS Patient to take verapamil when necessary. Disposition: Home Plan - Discharge Summary Discharge Rx Participant: No New Discharge Prescriptions: New Verapamil [Isoptin] 40 mg PO BID PRN #60 tab PRN Reason: Cardiac Arrhythmia Discharge Medication List Verapamil [Isoptin] 40 mg PO BID PRN #60 tab 03/23/23 [Rx] Follow up Appointment(s)/Referral(s): Alexi Mayers MD [STAFF PHYSICIAN] - 1 Week Sawyer Garcia MD [Primary Care Provider] - 1-2 days Discharge Disposition: HOME SELF-CARE
== END 2023-03-23 13:12 | disposition home or self-care (01) ==
LOC: EC 12:21 → INTOOBSV 20:15 → 3SCARD 20:15
PROVIDERS: ADMIT Hospitalist; ATTEND Hospitalist
DX: I47.1 Supraventricular tachycardia (principal); R77.8 Other specified abnormalities of plasma proteins; I48.0 Paroxysmal atrial fibrillation; J44.9 Chronic obstructive pulmonary disease, unspecified; I07.1 Rheumatic tricuspid insufficiency; I37.1 Nonrheumatic pulmonary valve insufficiency; R07.9 Chest pain, unspecified; Z90.710 Acquired absence of both cervix and uterus; Z87.891 Personal history of nicotine dependence; Z82.49 Family history of ischemic heart disease and other diseases of the circulatory system
CPT/HCPCS: 96372; 96375; 96374; 99285; 36415; 94760 ×2; 93005; 93306; 93351; 80061; 80053; 83735; 84443; 84484; 85025; 85610; 85730; 71046; G0378 ×3; J0153; J1644

== ENCOUNTER 2023-06-23 07:59 | Emergency (ER) | payer OTHER ==
[2023-06-23 08:06] VITALS: TEMP 97.1
[2023-06-23] MEDS ORDERED: SODIUM CHLORIDE 0.9% 500 ML 500 ML IV STA (08:22)
[2023-06-23] MEDS ORDERED: DILTIAZEM DRIP BOLUS FROM BAG 1 MG SOLN IV ONE (08:23)
--- NOTE | 2023-06-23 08:29 | ED ---
General Adult HPI - General Chief complaint: Chest Pain Stated complaint: chest pain Time Seen by Provider: 06/23/23 08:05 Source: patient, RN notes reviewed, old records reviewed Mode of arrival: ambulatory - History of Present Illness Initial comments: This is a 53-year-old female who presents emergency Department because her heart is racing. Patient has a history of atrial fibrillation. Patient states she had an ablation and hasn't had any atrial fibrillation since January. Patient states she did come in once after that for SVT and she was converted. Patient states that she supposed to get an ablation for the SVT in June. Patient states she woke up this morning felt her heart racing so she took a verapamil as she was instructed in her heart continued to race and she came to the emergency department. Patient states she does have some chest soreness but she states she heard call from the other day it has nothing to with today's racing heart. Patient denies shortness of breath. Patient denies any recent fever chills or cough per patient denies any heavy drinking or any drug use. - Related Data Previous Rx's Medication Instructions Recorded Verapamil [Isoptin] 40 mg PO BID PRN #60 tab 03/23/23 Allergies Allergy/AdvReac Type Severity Reaction Status Date / Time No Known Allergies Allergy Verified 06/23/23 08:49 Review of Systems ROS Statement: Those systems with pertinent positive or pertinent negative responses have been documented in the HPI. ROS Other: All systems not noted in ROS Statement are negative. Past Medical History Past Medical History: Atrial Fibrillation, Asthma History of Any Multi-Drug Resistant Organisms: None Reported Past Surgical History: Cardiac Ablation, Hysterectomy Past Psychological History: No Psychological Hx Reported Smoking Status: Never smoker Past Alcohol Use History: Occasional Past Drug Use History: None Reported General Exam - General Exam Comments Initial Comments: GENERAL: Patient is well-developed and well-nourished. Patient is nontoxic and well- hydrated and is in mild distress. ENT: Neck is soft and supple. No significant lymphadenopathy is noted. Oropharynx is clear. Moist mucous membranes. Neck has full range of motion without eliciting any pain. EYES: The sclera were anicteric and conjunctiva were pink and moist. Extraocular movements were intact and pupils were equal round and reactive to light. Eyelids were unremarkable. PULMONARY: Unlabored respirations. Good breath sounds bilaterally. No audible rales rhonchi or wheezing was noted. CARDIOVASCULAR: Patient's heart rate at 160 beats a minute and it is a regular ABDOMEN: Soft and nontender with normal bowel sounds. SKIN: Skin is clear with no lesions or rashes and otherwise unremarkable. NEUROLOGIC: Patient is alert and oriented x3. Cranial nerves II through XII are grossly intact. Motor and sensory are also intact. Normal speech, volume and content. Symmetrical smile. MUSCULOSKELETAL: Normal extremities with adequate strength and full range of motion. No lower extremity swelling or edema. No calf tenderness. LYMPHATICS: No significant lymphadenopathy is noted PSYCHIATRIC: Normal psychiatric evaluation. 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 EKG shows atrial fibrillation at 160 bpm QRS 72 QT interval is 276 QTC is 365. Patient's EKG shows no ST segment elevation or depression. Was pt. sent in by a medical professional or institution ([facility], PROBATION MANAGER, urgent care, hospital, or retirement...) When possible be specific @ -No Did you speak to anyone other than the patient for history (EMS, parent, family, police, friend...)? What history was obtained from this source @ -No Did you review nursing and triage notes (agree or disagree)? Why? @ -I reviewed and agree with nursing and triage notes Were old charts reviewed (outside hosp., previous admission, EMS record, old EKG, old radiological studies, urgent care reports/EKG's, retirement records)? Report findings @ -I reviewed prior charts prior lab work and prior radiological studies in this patient Differential Diagnosis (chest pain, altered mental status, abdominal pain women, abdominal pain men, vaginal bleeding, weakness, fever, dyspnea, syncope, headache, dizziness, GI bleed, back pain, seizure, CVA, palpatations, mental health, musculoskeletal)? @ -Differential Palpitations Ventricular arrhythmias, atrial arrhythmias, myocardial infarction, anemia, thyrotoxicosis, electrolyte imbalance, hypokalemia, pulmonary embolism, pulmonary disease, drugs, alcohol, anxiety, stress.... This is not meant to be an all-inclusive list. EKG interpreted by me (3pts min.). @ -As above X-rays interpreted by me (1pt min.). @ -Chest x-ray shows no acute abnormality CT interpreted by me (1pt min.). @ -None done U/S interpreted by me (1pt. min.). @ -None done What testing was considered but not performed or refused? (CT, X-rays, U/S, labs)? Why? @ -None What meds were considered but not given or refused? Why? @ -None Did you discuss the management of the patient with other professionals (professionals i.e. , PA, PROBATION MANAGER, lab, RT, psych nurse, social services director, insurance professional, teacher, chemistry technical officer, case packer)? Give summary @ -No Was smoking cessation discussed for >3mins.? @ -No Was critical care preformed (if so, how long)? @ -35 minutes Were there social determinants of health that impacted care today? How? (Homelessness, low income, unemployed, alcoholism, drug addiction, transportation, low edu. Level, literacy, decrease access to med. care, senior living, rehab)? @ -No Was there de-escalation of care discussed even if they declined (Discuss DNR or withdrawal of care, Hospice)? DNR status @ -No What co-morbidities impacted this encounter? (DM, HTN, Smoking, COPD, CAD, Cancer, CVA, ARF, Chemo, Hep., AIDS, mental health diagnosis, sleep apnea, morbid obesity)? @ -None Was patient admitted / discharged? Hospital course, mention meds given and route, prescriptions, significant lab abnormalities, going to OR and other per tinent info. @ -Patient was given Cardizem for atrial fibrillation and it slowed her heart rate down eventually she converted to a normal sinus rhythm. I spoke with Dr. Brothers he wanted the patient to get Fleciniade and subcu Lovenox. In the emergency department. Patient converted to a normal sinus rhythm and Dr. Johnson as long she was not bradycardic and she got the flecainide she could be discharged home Undiagnosed new problem with uncertain prognosis? @ -No Drug Therapy requiring intensive monitoring for toxicity (Heparin, Nitro, Insulin, Cardizem)? @ -No Were any procedures done? @ -No Diagnosis/symptom? @ -Atrial fibrillation with rapid ventricular response Acute, or Chronic, or Acute on Chronic? @ -Acute on chronic Uncomplicated (without systemic symptoms) or Complicated (systemic symptoms)? @ -Complicated Side effects of treatment? @ -No Exacerbation, Progression, or Severe Exacerbation? @ -No Poses a threat to life or bodily function? How? (Chest pain, USA, ID, pneumonia, PE, COPD, DKA, ARF, appy, cholecystitis, CVA, Diverticulitis, Homicidal, Suicidal, threat to staff... and all critical care pts) @ -Yes this could lead to poor perfusion and and organ dysfunction - Lab Data Result diagrams: 06/23/23 08:22 06/23/23 08:22 Lab Results 06/23/23 06/23/23 06/23/23 Range/Units 08:22 08:22 08:22 WBC 6.7 (3.8-10.6) k/uL RBC 4.55 (3.80-5.40) m/uL Hgb 14.9 (11.4-16.0) gm/dL Hct 44.3 (34.0-46.0) % MCV 97.4 (80.0-100.0) fL MCH 32.8 (25.0-35.0) pg MCHC 33.6 (31.0-37.0) g/dL RDW 12.7 (11.5-15.5) % Plt Count 243 (150-450) k/uL MPV 7.2 Neutrophils % 59 % Lymphocytes % 28 % Monocytes % 6 % Eosinophils % 5 % Basophils % 0 % Neutrophils # 3.9 (1.3-7.7) k/uL Lymphocytes # 1.9 (1.0-4.8) k/uL Monocytes # 0.4 (0-1.0) k/uL Eosinophils # 0.3 (0-0.7) k/uL Basophils # 0.0 (0-0.2) k/uL PT 9.9 (9.0-12.0) sec INR 0.9 (<1.2) APTT 24.4 (22.0-30.0) sec Sodium 140 (137-145) mmol/L Potassium 3.8 (3.5-5.1) mmol/L Chloride 107 (98-107) mmol/L Carbon Dioxide 26 (22-30) mmol/L Anion Gap 7 mmol/L BUN 13 (7-17) mg/dL Creatinine 0.61 (0.52-1.04) mg/dL Est GFR (CKD-EPI)AfAm >90 (>60 ml/min/1.73 sqM) Est GFR (CKD-EPI)NonAf >90 (>60 ml/min/1.73 sqM) Glucose 100 H (74-99) mg/dL Calcium 9.3 (8.4-10.2) mg/dL Magnesium 2.2 (1.6-2.3) mg/dL Total Bilirubin 0.5 (0.2-1.3) mg/dL AST 25 (14-36) U/L ALT 20 (4-34) U/L Alkaline Phosphatase 76 (38-126) U/L Troponin I (0.000-0.034) ng/mL Total Protein 7.6 (6.3-8.2) g/dL Albumin 4.5 (3.5-5.0) g/dL 06/23/23 Range/Units 08:22 WBC (3.8-10.6) k/uL RBC (3.80-5.40) m/uL Hgb (11.4-16.0) gm/dL Hct (34.0-46.0) % MCV (80.0-100.0) fL MCH (25.0-35.0) pg MCHC (31.0-37.0) g/dL RDW (11.5-15.5) % Plt Count (150-450) k/uL MPV Neutrophils % % Lymphocytes % % Monocytes % % Eosinophils % % Basophils % % Neutrophils # (1.3-7.7) k/uL Lymphocytes # (1.0-4.8) k/uL Monocytes # (0-1.0) k/uL Eosinophils # (0-0.7) k/uL Basophils # (0-0.2) k/uL PT (9.0-12.0) sec INR (<1.2) APTT (22.0-30.0) sec Sodium (137-145) mmol/L Potassium (3.5-5.1) mmol/L Chloride (98-107) mmol/L Carbon Dioxide (22-30) mmol/L Anion Gap mmol/L BUN (7-17) mg/dL Creatinine (0.52-1.04) mg/dL Est GFR (CKD-EPI)AfAm (>60 ml/min/1.73 sqM) Est GFR (CKD-EPI)NonAf (>60 ml/min/1.73 sqM) Glucose (74-99) mg/dL Calcium (8.4-10.2) mg/dL Magnesium (1.6-2.3) mg/dL Total Bilirubin (0.2-1.3) mg/dL AST (14-36) U/L ALT (4-34) U/L Alkaline Phosphatase (38-126) U/L Troponin I <0.012 (0.000-0.034) ng/mL Total Protein (6.3-8.2) g/dL Albumin (3.5-5.0) g/dL Critical Care Time Critical Care Time: Yes Total Critical Care Time: 35 Disposition Clinical Impression: Atrial fibrillation with rapid ventricular response Disposition: HOME SELF-CARE Instructions (If sedation given, give patient instructions): A-fib (Atrial Fibrillation) (ED) Additional Instructions: Patient should take her antiarrhythmic medication as she did before for the next week. Is patient prescribed a controlled substance at d/c from ED?: No Referrals: Hector Brothers MD [STAFF PHYSICIAN] - 1-2 days Time of Disposition: 10:32
[2023-06-23] MEDS ORDERED: DILTIAZEM 125 MG in SODIUM CHLORIDE 0.9% 100 ML IV SCH (08:30)
[2023-06-23 08:43] VITALS: RESP 20
[2023-06-23 08:59] LABS: Basophils % (A) 0 %; Eosinophils # (A) 0.3 k/uL (0-0.7); Eosinophils % (A) 5 %; HCT 44.3 % (34.0-46.0); HGB 14.9 gm/dL (11.4-16.0); Lymphocytes # (A) 1.9 k/uL (1.0-4.8); Lymphocytes % (A) 28 %; MCH 32.8 pg (25.0-35.0); MCHC 33.6 g/dL (31.0-37.0); MCV 97.4 fL (80.0-100.0); Mean Platelet Volume 7.2; Monocytes # (A) 0.4 k/uL (0-1.0); Monocytes % (A) 6 %; Neutrophils # (A) 3.9 k/uL (1.3-7.7); Neutrophils % (A) 59 %; Platelet Count 243 k/uL (150-450); RBC 4.55 m/uL (3.80-5.40); RDW 12.7 % (11.5-15.5); WBC 6.7 k/uL (3.8-10.6)
[2023-06-23 09:05] LABS: INR 0.9 (<1.2); Partial Thromboplastin Time 24.4 sec (22.0-30.0); Prothrombin Time 9.9 sec (9.0-12.0)
[2023-06-23 09:12] LABS: ALT 20 U/L (4-34); AST 25 U/L (14-36); African American GFR (CKD) >90 (>60 ml/min/1.73 sqM); Albumin 4.5 g/dL (3.5-5.0); Alkaline Phosphatase 76 U/L (38-126); Anion Gap 7 mmol/L; Blood Urea Nitrogen 13 mg/dL (7-17); Calcium 9.3 mg/dL (8.4-10.2); Carbon Dioxide 26 mmol/L (22-30); Chloride 107 mmol/L (98-107); Glucose 100 mg/dL (74-99); Magnesium 2.2 mg/dL (1.6-2.3); Non-African American GFR(CKD) >90 (>60 ml/min/1.73 sqM); Potassium 3.8 mmol/L (3.5-5.1); Sodium 140 mmol/L (137-145); Total Bilirubin 0.5 mg/dL (0.2-1.3); Total Protein 7.6 g/dL (6.3-8.2)
[2023-06-23 09:26] VITALS: PULSE 86
--- NOTE | 2023-06-23 09:31 | XR ---
EXAMINATION TYPE: XR chest 2V DATE OF EXAM: 06/23/2023 9:26 AM COMPARISON: Chest radiographs from 03/21/2023 TECHNIQUE: XR chest 2V Frontal and lateral views of the chest. CLINICAL INDICATION:Female, 53 years old with history of dysrhythmia; FINDINGS: Lungs/Pleura: There is flattening of the diaphragm with increased lucency of the lungs. No evidence o f pneumothorax, pleural effusion or focal consolidation. Chronic senescent parenchymal change. Pulmonary vascularity: Unremarkable. Heart/mediastinum: Cardiomediastinal silhouette is unremarkable. Musculoskeletal: No acute osseous pathology. IMPRESSION: 1. No acute cardiopulmonary disease process. 2. COPD changes.
[2023-06-23] MEDS ORDERED: FLECAINIDE 50 MG TAB PO STA (09:39)
[2023-06-23] MEDS ORDERED: ENOXAPARIN 30 MG/0.3 ML SYRINGE SQ STA (09:54)
[2023-06-23 11:09] VITALS: BP 110/60
== END 2023-06-23 11:09 | disposition home or self-care (01) ==
LOC: EC 07:59
DX: I48.20 Chronic atrial fibrillation, unspecified (principal); J44.9 Chronic obstructive pulmonary disease, unspecified
CPT/HCPCS: 36415; 93005; 80053; 84443; 83735; 84484; 85025; 85610; 85730; 71046; 99291; 96365; 96361; 96372; J1650

== ENCOUNTER 2023-07-04 09:11 | Day surgery (SDC) | payer OTHER ==
[2023-07-03 10:55] VITALS: BMI 20.5
[2023-07-04] MEDS ORDERED: IV FLUID CONTINUATION 1,000 ML IV ONE (11:52)
[2023-07-04] MEDS ORDERED: LIDOCAINE 1% INJ 10MG/ML (20 ML MDV) SQ ONE (12:23)
[2023-07-04] MEDS ORDERED: FLECAINIDE 50 MG TAB PO STA (13:44)
[2023-07-04] MEDS ORDERED: VERAPAMIL 40 MG TAB PO PRN (13:57)
--- NOTE | 2023-07-04 13:57 | P.HPCAR ---
History of Present Illness This is Dr. Brothers dictating an H/P on this patient The patient was interviewed and examined IMPRESSION / ASSESSMENT: Recurrent palpitations Narrow complex SVT within the first month of the A. fib ablation that apparently responded to adenosine IV Normal stress echo Normal 2-D echo Recent admission to the hospital in the ER, for paroxysmal atrial fibrillation with RVR, about 10 days back PLAN: Diagnoses EP study to look for any SVT or atrial tachycardia and possible radiofrequency ablation HPI Recurrent palpitations after A. fib ablation at [address] [place] [address] in the month of January she came to the ER and had narrow complex supraventricular tachycardia consistent with SVT, regular that was apparently responded to IV adenosine About 10 days back she came to the ER with an episode of atrial fibrillation with RVR ROS: No fever chills or rigors, no cough, phlegm or expectoration, no nausea, vomiting or diarrhea, no hematuria, dysuria, no musculoskeletal complaints, no strokes or seizures, no skin lesions. EXAMINATION: 136/93 mmHg, pulse rate 100 beats a minute, afebrile Breath sounds are clear no rhonchi no crackles Heart sounds S1 and S2 are normal Abdomen is soft Extremities are warm No JVD REVIEW OF LABS, ECG & MEDICAL DATA When necessary use of verapamil 40 mg by mouth twice a day Physical Exam Vitals: Vital Signs Temp Pulse Resp BP Pulse Ox 07/04/23 09:47 98.4 F 07/04/23 09:44 97.2 F L 100 16 136/93 96 Intake and Output 07/03/23 07/04/23 07/04/23 22:59 06:59 14:59 Intake Total 300 Balance 300 Intake: IV 300 Other: Weight 50.6 kg Past Medical History Past Medical History: Atrial Fibrillation, Asthma, Supraventricular Tachycardia (SVT) History of Any Multi-Drug Resistant Organisms: None Reported Past Surgical History: Cardiac Ablation, Hysterectomy Past Anesthesia/Blood Transfusion Reactions: No Reported Reaction Smoking Status: Never smoker - Past Family History Father Family Medical History: Cancer Physical Examination Vital Signs Temp Pulse Resp BP Pulse Ox 07/04/23 09:47 98.4 F 07/04/23 09:44 97.2 F L 100 16 136/93 96 Intake and Output 07/03/23 07/04/23 07/04/23 22:59 06:59 14:59 Intake Total 300 Balance 300 Intake: IV 300 Other: Weight 50.6 kg Results Current Medications Generic Name Dose Route Start Last Admin Trade Name Freq PRN Reason Stop Dose Admin Sodium Chloride 1,000 mls @ 20 mls/hr 07/04/23 07:05 Saline 0.9% IV 08/03/23 07:06 .Q24H SHAJI Intake and Output 07/03/23 07/04/23 07/04/23 22:59 06:59 14:59 Intake Total 300 Balance 300 Intake: IV 300 Other: Weight 50.6 kg Patient Weight 07/05/23 06:59 Weight 50.6 kg
[2023-07-04] MEDS ORDERED: ACETAMINOPHEN TAB 325 MG TAB PO PRN (13:58)
[2023-07-04] MEDS ORDERED: ACETAMINOPHEN IV (For NPO) 1,000 MG in EMPTY BAG 1 BAG IVPB ONE (13:58)
--- NOTE | 2023-07-04 14:07 | P.EPPROC ---
- EP Procedure Note Electrophysiology Procedure Note: Diagnosis Recurrent palpitations Documented SVT at 174 beats a minute, apparently adenosine sensitive and treated in the ER here, in the month of February Paroxysmal atrial fibrillation Status post AF ablation available at Hospital in January this year Final diagnosis Diagnostic EP study reveals no evidence for AV lolis reentry, AVRT or inducible atrial tachycardia No inducible atrial fibrillation either Details Patient was brought to the EP lab in a fasting state. Written informed consent was obtained prior to the procedure. The right and left groins were prepped and draped as a protocol in venous sheaths were placed in the femoral veins. Diagnostic catheters were positioned in the high right atrium, His bundle area, right ventricle and coronary sinus Sinus cycle length 728 ms, WV interval 119 ms, QRS 80 and QT interval 361 ms AH 60 ms and HV 43 ms AV node Wenckebach block 300 ms VA Wenckebach block 390 ms Lolis response to Parahisian pacing Sinus node recovery times were 999 ms, 1061 ms and 1019 ms Exit stimulation performed from the high right atrium coronary sinus and the right ventricle No SVT was induced up to double extrastimuli Isuprel started wide open and then at 2 mics. Later wide open again. AV node Wenckebach block improved to 230 ms VA Wenckebach block improved to 250 ms No evidence for slow pathway conduction No evidence for accessory pathway conduction No evidence for any inducible atrial tachycardia or atrial fibrillation Patient underwent a detailed study with appropriate double extrastimuli from the high right atrium, from the coronary sinus via multiple by poles Double extra stimuli from the RV No SVT was inducible Burst stimulation was performed after high-dose Isuprel once again No SVT induced either with atrial or ventricular pacing. WAS then removed and patient was transferred back telemetry after sealing the vascular sites with Vascade closure device
--- NOTE | 2023-07-04 14:09 | P.PRLE ---
RE: Shelly Escobar Dear Peggy Abramsjanet BunnLuz underwent a diagnostic EP study for assessment for recurrent palpitations following A. fib ablation After A. fib ablation available [facility], she presented to the hospital with narrow complex SVT that was adenosine sensitive She recently presented to the hospital once again at this time with paroxysmal atrial fibrillation with RVR I performed a very detailed EP study and there was no evidence for AV janelle reentry, accessory pathway conduction or atrial tachycardia. Therefore I would treat her with when necessary use of flecainide and verapamil only at this time Thank you for entrusting me with the care of the patient Warm regards Sincerely Hector Brothers
[2023-07-04] MEDS: SODIUM CHLORIDE 0.9% 1,000 ML IV SCH (15:11)
[2023-07-04] MEDS ORDERED: FLECAINIDE 50 MG TAB PO ONE (22:00)
[2023-07-05] MEDS ORDERED: FLECAINIDE 50 MG TAB PO SCH (06:00)
[2023-07-05 08:07] VITALS: BP 111/75; PULSE 82; RESP 16; TEMP 97.5
[2023-07-05] MEDS: SODIUM CHLORIDE 0.9% 1,000 ML IV SCH (08:42)
== END 2023-07-05 10:16 | disposition home or self-care (01) ==
LOC: CATHEP 09:11 → 6NMEDSUR 13:54 → CATHEP 07-05 10:16
PROVIDERS: ATTEND Internal Medicine Clinical Cardiac Electrophysiology
DX: I47.1 Supraventricular tachycardia (principal); I48.0 Paroxysmal atrial fibrillation; F17.210 Nicotine dependence, cigarettes, uncomplicated; J45.909 Unspecified asthma, uncomplicated; Z80.9 Family history of malignant neoplasm, unspecified; Z98.890 Other specified postprocedural states; Z79.811 Long term (current) use of aromatase inhibitors
CPT/HCPCS: 93623; 93621; 93620; 86900; 86901; 86850; C1894; C1769; C1760; C1730 ×3; J2001